=== PATIENT | female | born 1965 | race Caucasian/White ===

== ENCOUNTER 2017-12-29 14:26 | Emergency (ER) | payer BC ==
[~2017-12-29] VITALS: Ht 172.7 cm; Wt 107.3 kg
[~2017-12-29 14:26] MED LIST: AMBIEN CR12.5 MG PO; BUTRANS1 EACH TD; BYSTOLIC10 MG PO; CATAPRES0.1 MG PO; CYMBALTA60 MG PO; EXFORGE 5/321 TABLET PO; HYDROCHLOROTHIA25 MG PO; KLOR-CON 1010 ME1 PO; LIDODERM 5% P1 PATCH TD; MACROBID100 MG PO; SYNTHROID175 MCG PO
[2017-12-29 16:55] VITALS: BP 159/103
== END 2017-12-29 17:01 | disposition home or self-care (01) ==
LOC: EME 14:26
PROC: 3E0234Z Introduction of Serum, Toxoid and Vaccine into Muscle, Percutaneous Approach (ICD-10-PCS; principal; 2017-12-29)
DX: S61.052A Open bite of left thumb without damage to nail, initial encounter (principal); W55.01XA Bitten by cat, initial encounter; Z20.3 Contact with and (suspected) exposure to rabies; Z23 Encounter for immunization; Z29.14 Encounter for prophylactic rabies immune globulin; I10 Essential (primary) hypertension
CPT/HCPCS: 99281; 99284